=== PATIENT | female | born 1955 | race American Indian/Alaskan Native ===

== ENCOUNTER 2018-09-07 12:51 | Observation (INO) | payer OTHER ==
[2018-09-07] MEDS ORDERED: ASPIRIN PO ONE (13:05)
[2018-09-07 13:49] LABS: Basophils % (Auto) 0.5 % (0.0-1.8); Eosinophils # (Auto) 0.3 K/mm3 (0.0-0.4); Eosinophils % (Auto) 4.8 % (0.0-4.3); Hematocrit 39.2 % (30.3-42.9); Hemoglobin 13.1 gm/dl (10.1-14.3); Lymphocytes # (Auto) 2.3 K/mm3 (1.2-5.4); Lymphocytes % (Auto) 37.6 % (13.4-35.0); Mean Corpuscular HGB Conc 34 % (30-34); Mean Corpuscular Volume 84 fl (79-97); Monocytes # (Auto) 0.6 K/mm3 (0.0-0.8); Monocytes % (Auto) 9.6 % (0.0-7.3); Platelet Count 328 K/mm3 (140-440); Red Blood Count 4.68 M/mm3 (3.65-5.03); Red Cell Distribution Width 14.2 % (13.2-15.2)
--- NOTE | 2018-09-07 13:54 | XRay Report ---
AP CHEST: HISTORY: chest pain AP view of the chest demonstrates a normal mediastinal and cardiac contour with clear lungs and normal bony and soft tissue structures. IMPRESSION: Unremarkable AP chest.
[2018-09-07 14:00] LABS: INR 1.05 (0.87-1.13); Partial Thromboplastin Time 25.8 Sec. (24.2-36.6)
[2018-09-07 14:04] LABS: BUN/Creatinine Ratio 15; Blood Urea Nitrogen 12 mg/dL (7-17); Calcium 9.6 mg/dL (8.4-10.2); Hemolysis Index 21
[2018-09-07] MEDS ORDERED: HEPARIN 10,000 UNITS/10 ML IV ONE ×3 (14:17→14:43)
--- NOTE | 2018-09-07 14:17 | Emergency Department Report ---
ED Chest Pain HPI - General Chief Complaint: Chest Pain Stated Complaint: PE Time Seen by Provider: 09/07/18 13:07 Source: patient, EMS Mode of arrival: Stretcher Limitations: No Limitations - History of Present Illness Initial Comments: 63-year-old female with a past medical and a cholesterol vertigo presents to the hospital complaining of chest pain and shortness of breath. Patient was sent here after having an outpatient evaluation for these symptoms with positive DVT and pulmonary embolism. Patient reports returning back from a trip to [facility] 3 weeks ago. She spent 3 weeks there prior to returning. She denies previous history of PE or DVT. She is complaining of intermittent pulling sensation to her mid and left side of her chest times one week and pain to her left calf times one week. Mild shortness of breath reported. Patient had an outpatient left leg Doppler today September 07 prior to arrival showing extensive DVT involving the left lower extremity especially along the femoral and popliteal vein. There is clot in the proximal aspect of the femoral vein demonstrates flow surrounding it suggesting it is free hanging Patient also had a CT angiogram chest today prior to arrival showing right-sided acute pulmonary embolism of the right descending pulmonary artery with central cannulization with Large clots within the IVC at the level of the renal vein with small anterior Emblem patent lumen. copy of report placed on chart. ct on disc given back to pt so it will not get lost Severity scale (0 -10): 0 - Related Data Home Medications Medication Instructions Recorded Confirmed Last Taken Simvastatin [Zocor TAB] 40 mg PO QDAY 07/28/13 09/07/18 07/27/13 09:00 Allergies Allergy/AdvReac Type Severity Reaction Status Date / Time No Known Allergies Allergy Unverified 07/28/13 10:39 Heart Score - HEART Score History: Slightly suspicious EKG: Non-specific Age: 45-65 Risk factors: 1-2 risk factors Troponin: < normal limit HEART Score: 3 ED Review of Systems ROS: Stated complaint: PE Other details as noted in HPI Comment: All other systems reviewed and negative ED Past Medical Hx - Past Medical History Additional medical history: high cholesterol. vertigo - Surgical History Additional Surgical History: tubal ligation - Social History Smoking Status: Never Smoker - Medications Home Medications: Home Medications Medication Instructions Recorded Confirmed Last Taken Type Simvastatin [Zocor TAB] 40 mg PO QDAY 07/28/13 09/07/18 07/27/13 09:00 History ED Physical Exam - General Limitations: No Limitations - Other Other exam information: General: No limitations, patient is alert in no acute distress Head exam: Atraumatic, normocephalic Eyes exam: Normal appearance ENT: Moist mucous membrane, normal oropharynx Neck exam: Normal inspection, full range of motion, no meningismus nontender Respiratory exam: Clear to auscultation bilateral, no wheezes, rales, crackles Cardiovascular: Normal rate and rhythm, left upper chest wall tenderness Abdomen: Soft, nondistended, and nontender, with normal bowel sounds, no rebound, or guarding Extremity: Full range of motion, left leg edema with left calf tenderness Back: Normal Inspection, full range of motion, no tenderness Neurologic: Alert, oriented x3, cranial nerves intact, no motor or sensory deficit Psychiatric: normal affect, normal mood Skin: Warm, dry, intact ED Course Vital Signs 09/07/18 13:15 Temperature 98.5 F Pulse Rate 76 Respiratory 17 Rate Blood Pressure 175/84 [Left] O2 Sat by Pulse 96 Oximetry - Consultations Consultation #1: 09/07/18 14:22 case d/w vascular Dr Anders. rec heparin drip, will consult EDNISHA score - Denisha Score Age > 65: (0) No Aspirin use within the Past 7 Days: (0) No 3 or more CAD Risk Factors: (0) No 2 or more Angina events in past 24 hrs: (0) No Known CAD with more than 50% Stenosis: (0) No Elevated Cardiac Markers: (0) No ST Deviation Greater than 0.5mm: (0) No DENISHA Score: 0 ED Medical Decision Making - Lab Data Result diagrams: 09/07/18 13:16 09/07/18 13:16 Lab Results 09/07/18 09/07/18 09/07/18 Range/Units 13:16 13:16 13:16 WBC 6.0 (4.5-11.0) K/mm3 RBC 4.68 (3.65-5.03) M/mm3 Hgb 13.1 (10.1-14.3) gm/dl Hct 39.2 (30.3-42.9) % MCV 84 (79-97) fl MCH 28 (28-32) pg MCHC 34 (30-34) % RDW 14.2 (13.2-15.2) % Plt Count 328 (140-440) K/mm3 Lymph % (Auto) 37.6 H (13.4-35.0) % [place] % (Auto) 9.6 H (0.0-7.3) % Eos % (Auto) 4.8 H (0.0-4.3) % Baso % (Auto) 0.5 (0.0-1.8) % Lymph # 2.3 (1.2-5.4) K/mm3 [place] # 0.6 (0.0-0.8) K/mm3 Eos # 0.3 (0.0-0.4) K/mm3 Baso # 0.0 (0.0-0.1) K/mm3 Seg Neutrophils % 47.5 (40.0-70.0) % Seg Neutrophils # 2.8 (1.8-7.7) K/mm3 PT 13.4 (12.2-14.9) Sec. INR 1.05 (0.87-1.13) APTT 25.8 (24.2-36.6) Sec. D-Dimer 4942.81 H (0-234) ng/mlDDU Sodium 139 (137-145) mmol/L Potassium 4.4 (3.6-5.0) mmol/L Chloride 102.1 (98-107) mmol/L Carbon Dioxide 25 (22-30) mmol/L Anion Gap 16 mmol/L BUN 12 (7-17) mg/dL Creatinine 0.8 (0.7-1.2) mg/dL Estimated GFR > 60 ml/min BUN/Creatinine Ratio 15 % Glucose 96 (65-100) mg/dL Calcium 9.6 (8.4-10.2) mg/dL Troponin T < 0.010 (0.00-0.029) ng/mL - EKG Data -: EKG Interpreted by Ak EKG shows normal: sinus rhythm, axis (qrs -9), QRS complexes (qrsd 95), ST-T waves (no stemi) Rate: normal (69) - Radiology Data Radiology results: report reviewed Chest x-ray: No acute findings - Medical Decision Making Patient has extensive deep and we cannulated pulmonary embolism. Case discussed with vascular. Heparin drip initiated. Hospitalist informed - Differential Diagnosis pulmonary embolism, coagulopathy, DVT, pulmonary embolism Critical Care Time: No Critical care attestation.: If time is entered above; I have spent that time in minutes in the direct care of this critically ill patient, excluding procedure time. ED Disposition Clinical Impression: Acute DVT (deep venous thrombosis), Pulmonary embolism Disposition: OP ADMIT IP TO THIS HOSP Is pt being admited?: Yes Condition: Stable Referrals: PRIMARY CARE, [Primary Care Provider] - 3-5 Days Time of Disposition: 14:12 (DR Tang/hospitalist)
[2018-09-07] MEDS ORDERED: HEPARIN/ 0.45% NACL-25,000 UNIT/500 ML 25,000 UNIT/500 ML BAG ONE (14:44)
[2018-09-07] MEDS ORDERED: HEPARIN/ 0.45% NACL-25,000 UNIT/500 ML 25,000 UNIT/500 ML BAG IV SCH (16:00)
--- NOTE | 2018-09-07 16:43 | Consultation ---
History of Present Illness - Reason for Consult Consult date: 09/07/18 DVT, PE - History of Present Illness Patient with a history of long distance travel approximately 3 weeks ago. Since that time, the patient is complained of leg pain. She underwent a DVT study which was positive for femoral popliteal DVT. Following this, the patient was sent as an outpatient for CT angiography or chest. Small amounts of pulmonary embolism are present. Additionally, on CT of the chest the patient was noted to have IVC thrombus extending from the infrarenal IVC distally. Past History Past Medical History: other (hernia) Social history: no significant social history Family history: no significant family history Medications and Allergies Allergies Allergy/AdvReac Type Severity Reaction Status Date / Time No Known Allergies Allergy Unverified 07/28/13 10:39 Home Medications Medication Instructions Recorded Confirmed Last Taken Type Simvastatin [Zocor TAB] 40 mg PO QDAY 07/28/13 09/07/18 07/27/13 09:00 History Active Meds: Active Medications Heparin Sodium/Sodium Chloride (Heparin/ 0.45% Nacl-25,000 Unit/500 Ml) 25,000 unit in 500 mls @ 29 mls/hr IV TITR BLAIR; Protocol Last Admin: 09/07/18 15:04 Dose: 15 units/kg/hr, 29.19 mls/hr Documented by: Review of Systems All systems: negative Exam - Constitutional Vitals: Temp Pulse Resp BP Pulse Ox 98.5 F 80 17 157/100 96 09/07/18 13:15 09/07/18 15:46 09/07/18 15:46 09/07/18 15:46 09/07/18 15:46 General appearance: Present: no acute distress - EENT Eyes: Present: PERRL, EOM intact ENT: hearing intact - Neck Neck: Present: supple, normal ROM - Respiratory Respiratory effort: normal - Extremities Extremities: abnormal Extremity abnormal: edema - Abdominal General gastrointestinal: Present: deferred - Rectal Rectal Exam: deferred - Psychiatric Psychiatric: appropriate mood/affect, cooperative Results - Labs CBC & Chem 7: 09/07/18 13:16 09/07/18 13:16 Labs: Abnormal lab results 09/07/18 09/07/18 Range/Units 13:16 13:16 Lymph % (Auto) 37.6 H (13.4-35.0) % [place] % (Auto) 9.6 H (0.0-7.3) % Eos % (Auto) 4.8 H (0.0-4.3) % D-Dimer 4942.81 H (0-234) ng/mlDDU - Imaging and Cardiology CT scan - chest: image reviewed Venous US: image reviewed Assessment and Plan Patient was sequela of venous insufficiency and DVT with extension into the IVC. An urgent ultrasound of the IVC was performed as mixing artifact was suspected. The IVC is widely patent from the right atrium to the bifurcation. However, the patient does have a left femoral popliteal DVT and pulmonary embolism. Recommended initiation of a heparin drip with transition to oral anticoagulation either Eliquis or Xarelto. Will need to remain on anticoagulation for at least 6 months with follow-up ultrasound to document resolution of her thrombus. Additionally, the patient has sequela of venous insufficiency with hemosiderin staining and dry scaly skin predominantly involving her left lower leg. On discharge, the patient will need to be evaluated for venous insufficiency of both are superficial and deep venous systems.
[2018-09-07] MEDS ORDERED: NON-FORMULARY (Simvastatin 40 MG) PO SCH (19:30)
--- NOTE | 2018-09-07 20:31 | Vascular Lab Report ---
PROCEDURE: VL AO/IVC/ILIAC DUPLEX LTD TECHNIQUE: Real-time sonography was performed of the inferior vena cava and iliac veins with image d ocumentation. HISTORY: DVT, IVC thrombus called on CT - need to confirm COMPARISONS: None . FINDINGS: The inferior vena cava demonstrates normal blood flow, with no filling defects seen. Left common ofelia c vein demonstrates normal blood flow. Right common iliac vein was not able to be clearly evaluated. Bilateral external iliac veins demonstrate normal blood flow. IMPRESSION: There is blood flow within the interrogated veins, including the inferior vena cava. No occlusive thr ombus is seen. Nonocclusive thrombus however cannot be fully excluded. Prior CT is not available for comparison. This document is electronically signed by Jessica Huff MD., September 07 2018 08:29:04 PM ET
[2018-09-07] MEDS ORDERED: PERCOCET 5/325 PO PRN (21:24)
[2018-09-07] MEDS ORDERED: DILAUDID IV PRN (21:24)
[2018-09-07] MEDS ORDERED: AMBIEN PO PRN (21:24)
[2018-09-07] MEDS ORDERED: SODIUM CHLORIDE FLUSH SYRINGE 10 ML IV PRN (21:24)
[2018-09-07] MEDS ORDERED: TYLENOL PO PRN (21:24)
[2018-09-07] MEDS ORDERED: ZOFRAN IV PRN (21:24)
[2018-09-07] MEDS ORDERED: PRAVACHOL PO SCH (22:00)
[2018-09-07] MEDS: PEPCID IV SCH (22:31)
[2018-09-07] MEDS: NACL 0.9% 1000 ML 1,000 ML IV SCH (22:31)
[2018-09-07] MEDS ORDERED: BENADRYL PO PRN (23:10)
[2018-09-08] MEDS: SODIUM CHLORIDE FLUSH SYRINGE 10 ML IV SCH ×2 (00:14→09:52)
--- NOTE | 2018-09-08 06:35 | Event Note ---
Date: 09/07/18 See H/p in reports Acute PE LLE DVT IV Heparin IR Coihectorult
--- NOTE | 2018-09-08 07:14 | History and Physical Report ---
CHIEF COMPLAINT: Left-sided chest pain and shortness of breath. HISTORY OF PRESENT ILLNESS: A 63-year-old female with history of hyperlipidemia, sent from Radiology office for chest pain and shortness of breath and recent findings of DVT and pulmonary embolism. The patient came back from a trip to [facility] 3 weeks ago, she spent 3 weeks there in [facility]. No previous history of DVT or PE. The patient complains of intermittent pain in the left lower extremity and also pain in the left side of the chest. Also, shortness of breath on minimal exertion. The patient had left lower extremity Doppler studies, which showed extensive DVT and also acute PE on the CT angiogram. The patient was sent to the ER for evaluation. PAST MEDICAL HISTORY: Significant for hyperlipidemia. PAST SURGICAL HISTORY: Tubal ligation. SOCIAL HISTORY: Does not smoke. FAMILY HISTORY: Hypertension. REVIEW OF SYSTEMS: Significant for left lower extremity pain and also left-sided bilateral chest pain, more so on the right side. Minimal shortness of breath on minimal exertion. No orthopnea. Otherwise, review of systems negative. A 14-point review of systems done. PHYSICAL EXAMINATION: GENERAL: Young elderly female, cooperative during examination. VITAL SIGNS: Blood pressure 176/101, temperature 98.3, pulse is 74, respirations are 18. HEENT: Unremarkable. Pupils equal and reactive. NECK: Supple, no lymphadenopathy, no thyromegaly. LUNGS: Scattered rhonchi bilaterally. CARDIOVASCULAR: S1, S2 heard. No gallop, no murmur, no rub. Apical impulse in left fifth intercostal space and midclavicular line. ABDOMEN: Soft and benign. No hepatosplenomegaly. No guarding, no rigidity. Hernial orifices are normal. EXTREMITIES: Good pedal pulses. Swelling of the left lower extremity near the calf and mid thigh region present. CENTRAL NERVOUS SYSTEM: Alert and oriented x 4, nonfocal exam. SKIN: Normal. LABORATORY DATA: CBC is normal. Electrolytes are normal. INR is 1.05. D-dimer is 4942. DIAGNOSTIC DATA: Electrocardiogram shows sinus rhythm, heart rate of 62 per minute. Chest x-ray is normal. No acute findings. CT angiogram for [facility] shows right-sided acute PE with large amount of clots within the IVC at the level of renal vein. The remainder of the chest CT angiogram is unremarkable. Left lower extremity Doppler study shows extensive DVT in the left lower extremity along the femoral vein and the popliteal vein. The clot is in the proximal aspect of the femoral vein demonstrates slow surrounding suggesting free hanging. ASSESSMENT AND PLAN: 1. Acute pulmonary embolism. The patient started on IV heparin. Also, Interventional Radiology consult requested for possible EKOS. 2. Left lower extremity deep venous thrombosis. The patient also on IV heparin. The patient to be transitioned to Eliquis after EKOS. 3. Hyperlipidemia. Continue simvastatin. 4. Deep venous thrombosis prophylaxis. The patient already on IV heparin. JOB# [id number] FIOR/BEN BARNHATR
[2018-09-08 08:59] LABS: Basophils # (Auto) 0.1 K/mm3 (0.0-0.1); Basophils % (Auto) 1.2 % (0.0-1.8); Eosinophils # (Auto) 0.3 K/mm3 (0.0-0.4); Hematocrit 39.1 % (30.3-42.9); Hemoglobin 13.1 gm/dl (10.1-14.3); Lymphocytes # (Auto) 3.2 K/mm3 (1.2-5.4); Lymphocytes % (Auto) 43.5 % (13.4-35.0); Mean Corpuscular HGB Conc 34 % (30-34); Mean Corpuscular Volume 84 fl (79-97); Monocytes # (Auto) 0.4 K/mm3 (0.0-0.8); Platelet Count 342 K/mm3 (140-440); Red Blood Count 4.67 M/mm3 (3.65-5.03); Red Cell Distribution Width 14.1 % (13.2-15.2)
--- NOTE | 2018-09-08 09:09 | Progress Note ---
Assessment and Plan Patient will need to be discharged on oral anticoagulation for 6 months. She may follow up in our office in 2 weeks. Additionally, prior to discontinuation of her anticoagulation, the patient will need lower extremity ultrasound to document resolution of her DVT. Once the patient has had initiation on oral anticoagulation, the patient is okay to be discharged from a vascular standpoint Subjective Date of service: 09/08/18 Principal diagnosis: DVT/PE Interval history: Patient with a history of PE and DVT. She is breathing comfortably on room air. No significant bilateral lower extremity swelling. Patient is currently on a heparin drip. Objective - Constitutional Vitals: Vital Signs - 12hr 09/07/18 09/08/18 09/08/18 23:10 03:39 03:49 Temperature 98.0 F 97.6 F 98.0 F Pulse Rate 70 64 109 H Pulse Rate [ Apical] Respiratory 16 16 16 Rate Blood Pressure 133/73 151/84 147/94 O2 Sat by Pulse 96 97 98 Oximetry 09/08/18 06:21 Temperature Pulse Rate Pulse Rate [ 89 Apical] Respiratory 20 Rate Blood Pressure O2 Sat by Pulse 96 Oximetry General appearance: Present: no acute distress - EENT Eyes: EOM intact ENT: hearing intact - Neck Neck: supple, normal ROM - Respiratory Respiratory effort: normal - Breasts Breasts: deferred Extremities: abnormal (edema BLE) - Gastrointestinal General gastrointestinal: Present: deferred Rectal Exam: deferred - Genitourinary Female genitourinary: deferred - Psychiatric Psychiatric: appropriate mood/affect, cooperative - Labs CBC & Chem 7: 09/08/18 08:49 09/07/18 13:16 Labs: Abnormal lab results 09/07/18 09/07/18 09/07/18 Range/Units 13:16 13:16 19:33 Lymph % (Auto) 37.6 H (13.4-35.0) % [place] % (Auto) 9.6 H (0.0-7.3) % Eos % (Auto) 4.8 H (0.0-4.3) % D-Dimer 4942.81 H (0-234) ng/mlDDU Heparin Anti-Xa Level 1.08 H (0.3-0.7) U.I./ml 09/08/18 Range/Units 08:49 Lymph % (Auto) 43.5 H (13.4-35.0) % [place] % (Auto) (0.0-7.3) % Eos % (Auto) (0.0-4.3) % D-Dimer (0-234) ng/mlDDU Heparin Anti-Xa Level (0.3-0.7) U.I./ml Medications & Allergies - Medications Allergies/Adverse Reactions: Allergies No Known Allergies Allergy (Unverified 07/28/13 10:39) Home Medications: Home Medications Medication Instructions Recorded Confirmed Last Taken Type Simvastatin [Zocor TAB] 40 mg PO QDAY 07/28/13 09/07/18 07/27/13 09:00 History Active Medications: Generic Name Dose Route Start Last Admin Trade Name Freq PRN Reason Stop Dose Admin Acetaminophen 650 mg 09/07/18 21:24 Tylenol PO Q4H PRN Pain MILD(1-3)/Fever >100.5/OMER Diphenhydramine HCl 25 mg 09/07/18 23:10 Benadryl PO Q6H PRN Itching Famotidine 20 mg 09/07/18 22:00 09/07/18 22:31 Pepcid IV 20 mg BID BLAIR Administration Hydromorphone HCl 0.5 mg 09/07/18 21:24 Dilaudid IV Q3H PRN Pain , Severe (7-10) Heparin Sodium/Sodium Chloride 25,000 unit in 500 mls @ 29 mls/hr 09/07/18 16:00 09/08/18 00:32 Heparin/ 0.45% Nacl-25,000 Unit/500 Ml IV 13 units/kg/hr TITR BLAIR 25.298 mls/hr Titration Protocol 1,450 UNITS/HR Sodium Chloride 1,000 mls @ 75 mls/hr 09/07/18 22:00 09/07/18 22:31 Nacl 0.9% 1000 Ml IV 75 mls/hr DIRECT BLAIR Administration Ondansetron HCl 4 mg 09/07/18 21:24 Zofran IV Q8H PRN Nausea And Vomiting Oxycodone/Acetaminophen 1 tab 09/07/18 21:24 09/07/18 22:30 Percocet 5/325 PO 1 tab Q6H PRN Administration Pain, Moderate (4-6) Pravastatin Sodium 80 mg 09/07/18 22:00 09/07/18 22:30 Pravachol PO 80 mg QHS BLAIR Administration Sodium Chloride 10 ml 09/07/18 22:00 09/08/18 00:14 Sodium Chloride Flush Syringe 10 Ml IV Not Given BID BLAIR Sodium Chloride 10 ml 09/07/18 21:24 Sodium Chloride Flush Syringe 10 Ml IV PRN PRN LINE FLUSH Zolpidem Tartrate 5 mg 09/07/18 21:24 Ambien PO QHS PRN Insomnia
[2018-09-08 09:24] LABS: Alanine Aminotransferase 17 units/L (7-56); Albumin 3.6 g/dL (3.9-5); BUN/Creatinine Ratio 12; Blood Urea Nitrogen 11 mg/dL (7-17); Hemolysis Index 6
[2018-09-08] MEDS: PEPCID IV SCH (09:52)
[2018-09-08] MEDS: NACL 0.9% 1000 ML 1,000 ML IV SCH (09:52)
--- NOTE | 2018-09-08 11:08 | Discharge Summary ---
Providers - Providers Date of Admission: 09/07/18 17:00 Attending physician: NANDO ELDER MD 09/07/18 14:21 Consult to Physician [CONS] Urgent Comment: Consulting Provider: ADELINE CASTANEDA Physician Instructions: Reason For Exam: dvt, pulm embolism Primary care physician: SACHIN BARKER Hospitalization Reason for admission: DVT, PE Condition: Stable Hospital course: 63 year old female was sent from vascular surgery office after they find out patient has acute PE and LLE DVT. patient was admitted treated with heparin drip and Vascular surgery evaluated and recommend no EKOS. V/S were stable and discharged home in a stable condition with Eliquis. Patient was advised to continue the treatment for 6months and advised to have u/s of the legs before discontinuation. Disposition: DC-01 TO HOME OR SELFCARE Time spent for discharge: 32 minutes - Discharge Diagnoses (1) Acute DVT (deep venous thrombosis) Status: Acute (2) Pulmonary embolism Status: Acute Core Measure Documentation - Palliative Care Palliative Care/ Comfort Measures: Not Applicable - Core Measures Any of the following diagnoses?: DVT/PE - VTE Discharge Requirements Deep Vein Thrombosis/Pulmonary Embolism Present on Admission: Yes Has pt received <5 days of overlap therapy or INR<2.0: Yes Anticoagulant overlap therapy prescribed at discharge: No Contraindication No Overlap Therapy order at DC: Not Indicated Exam - Constitutional Vitals: Temp Pulse Resp BP Pulse Ox 98.0 F 89 20 147/94 96 09/08/18 03:49 09/08/18 06:21 09/08/18 06:21 09/08/18 03:49 09/08/18 06:21 - EENT Eyes: Present: PERRL ENT: hearing intact, clear oral mucosa - Neck Neck: Present: supple, normal ROM - Respiratory Respiratory effort: normal Respiratory: bilateral: CTA - Cardiovascular Heart Sounds: Present: S1 & S2. Absent: rub, click - Extremities Extremity abnormal: edema (LLE minimal swelling around the calf area.) Peripheral Pulses: within normal limits - Abdominal General gastrointestinal: Present: soft, non-tender, non-distended, normal bowel sounds - Integumentary Integumentary: Present: clear, warm, dry - Musculoskeletal Musculoskeletal: gait normal, strength equal bilaterally - Psychiatric Psychiatric: appropriate mood/affect, intact judgment & insight - Neurologic Neurologic: CNII-XII intact, moves all extremities - Allied Health Allied health notes reviewed: case management Plan Activity: no restrictions Weight Bearing Status: Full Weight Bearing Diet: low cholesterol, low carbohydrate Follow up with: PRIMARY CAREMD [Referring] - 3-5 Days ADELINE CASTANEDA MD [Staff Physician] - 14 Days Prescriptions: Apixaban [Eliquis] 5 mg PO Q12HR #74 tablet Ibuprofen [Motrin 400 MG tab] 400 mg PO Q8H PRN #20 tablet PRN Reason: Pain, Moderate (4-6)
[2018-09-08] MEDS ORDERED: ELIQUIS PO SCH (11:30)
[2018-09-08 12:29] VITALS: BP 141/88
== END 2018-09-08 14:47 | disposition home or self-care (01) ==
LOC: ED 12:51 → 4A 17:00 → INTOOBSV 17:00
PROVIDERS: ADMIT Internal Medicine; ATTEND Internal Medicine
DX: I26.99 Other pulmonary embolism without acute cor pulmonale (principal); I82.402 Acute embolism and thrombosis of unspecified deep veins of left lower extremity; E78.5 Hyperlipidemia, unspecified; Z98.51 Tubal ligation status
CPT/HCPCS: 36415; 71045; 80048; 80053; 83036; 84484; 85025; 85379; 85520; 85610; 85730; 93005; 93010; 93979; 96374; 96375; 96376; 99284; A9270; G0378; J1644; J7030